=== PATIENT | male | born 1990 | race Caucasian/White ===

== ENCOUNTER 2018-09-19 01:14 | Emergency (ER) | payer BC, OTHER ==
[~2018-09-19] VITALS: Wt 67.0 kg
[2018-09-19 01:17] VITALS: BP 126/56; PULSE 60; RESP 18
[2018-09-19] MEDS ORDERED: BUPR300T48 PO (01:49)
--- NOTE | 2018-09-19 01:52 | ERD ---
ER Documentation Chief Complaint Chief Complaint med refill, wellbutrin HPI 28-year-old male presents with request for medication refill for Wellbutrin 300 mg XL. Ran out 3 days ago. He is unable to see his primary doctor due to work hours. He denies any thoughts of homicidal or suicidal ideations, hallucinations, or additional complaints other than request for medication refill. He has a history of ADHD as well as depression. ROS All systems reviewed and are negative except as per history of present illness. Medications Home Meds Active Scripts Bupropion Hcl* (Wellbutrin XL*) 300 Mg Tab.sr.24h, 300 MG PO DAILY, #30 TAB.SA Prov:BIPIN CUENCA MD 09/19/18 FmHx Family History: No diabetes, No coronary disease, No other Physical Exam Vitals Vital Signs Date Temp Pulse Resp B/P (MAP) Pulse Ox O2 O2 Flow FiO2 Time Delivery Rate 09/19/18 97.4 60 18 126/56 98 01:17 (79) Physical Exam Const: No acute distress Head: Atraumatic Eyes: Normal Conjunctiva ENT: Normal External Ears, Nose and Mouth. Neck: Full range of motion. No meningismus. Resp: Clear to auscultation bilaterally Cardio: Regular rate and rhythm, no murmurs Abd: Soft, non tender, non distended. Normal bowel sounds Skin: No petechiae or rashes Back: No midline or flank tenderness Ext: No cyanosis, or edema Neur: Awake and alert Psych: Normal Mood and Affect. Denies homicidal or suicidal ideations. Procedures/MDM Patient presents with request for medication refill of her Wellbutrin. Is no signs of homicidal or suicidal ideations or grave disability. He is acting appropriately. He was administered a refill for 30 days with instructions for primary care follow-up and return precautions. The patient was stable with no new complaints during the ER course. Clinically, there is no current evidence to suggest meningitis, sepsis, acute abdomen, pneumonia, stroke, acute coronary syndrome, pulmonary embolism, aortic dissection or any other emergent condition appearing to require further evaluation or hospitalization. Patient counseled regarding my diagnostic impression and care plan. Prior to discharge all questions answered. Pt agrees with treatment plan and understands strict return precautions. Pt is instructed to follow up with primary care provider within 24- 48 hours. Precautionary instructions provided including instructions to return to the ER if not improving or for any worsening or changing symptoms or concerns. Disclaimer: Inadvertent spelling and grammatical errors are likely due to EHR/dictation software use and do not reflect on the overall quality of patient care. Also, please note that the electronic time recorded on this note does not necessarily reflect the actual time of the patient encounter. Departure Diagnosis: Primary Impression: Depression Additional Impression: Encounter for medication refill Condition: Stable Patient Instructions: Taking Medicine Safely, Depression BIPIN CUENCA MD September 19, 2018 01:52
== END 2018-09-19 02:31 | disposition home or self-care (01) ==
LOC: FTE 01:14
DX: F32.9 Major depressive disorder, single episode, unspecified (principal)
CPT/HCPCS: 99281